=== PATIENT | male | born 1990 | race Two or more races ===

== ENCOUNTER 2018-08-21 14:57 | Inpatient (IN) | payer OTHER ==
--- OUTSIDE RECORDS SUMMARY | 2018-08-21 15:45 | XMS REPORT | Continuity of Care Document ---
:1990 External Reference #:[id number] Author Name Ermias Meléndez MD Address [facility] [place] [address] Care Team Providers Name Role Phone Brandee CamachoRPA-C Care Team Information Inspection Supervisor Unavailable Payers Type Date Identification Numbers Payment Provider Subscriber Policy Number: [id number] [facility] Raul Apodaca PayID: [id number] [address] [place] [address] Advance Directives Description No Information Available Problems Date Description Provider Status Onset: 08/19/2018 Epigastric pain Ermias Meléndez MD Active Family History Date Family Member(s) Problem(s) Comments Mother Heart Disease Social History Type Date Description Comments Sex Unknown Tobacco Use Start: Unknown Patient has never smoked Smoking Status Reviewed: 08/19/18 Patient has never smoked Allergies, Adverse Reactions, Alerts Description No Known Drug Allergies Medications Medication Date Status Form Strength Qnty SIG Indications Ordering Provider Sucralfate 08/19/20 Active Suspension 1GM/10ML 20ml 10mL R10.13 Ermias Swain 18 po q MD Rika ac and hs Amoxicillin Active Capsules 500mg Khavash,Valencia 00 bassam,RPA-C Clarithromycin Active Tablets 500mg Khavash,Valencia 00 bassam,RPA-C Omeprazole Active Capsules DR 40mg Khavash,Valencia 00 bassam,RPA-C Immunizations Description No Information Available Vital Signs Date Vital Result Comment 08/19/2018 11:04am Height 71.5 inches 5'11.50" Weight 168.00 lb BP Systolic 138 mmHg BP Diastolic 72 mmHg Heart Rate 66 /min BMI (Body Mass Index) 23.1 kg/m2 Results Test Date Facility Test Result H/L Range Note CBC W/Auto 08/18/2018 [facility] White Blood <pending> Differential(!) Count Ser Auto CNT RBC Red Blood Count <pending> Hemoglobin Blood <pending> Hematocrit <pending> MCV (Corpuscular Volume) <pending> MCH (Corpuscular Hemoglobin) <pending> MCHC (Corpuscular Hemog Conc) <pending> RDW <pending> Platelet Count Blood Auto CNT <pending> MPV <pending> Lymph% <pending> Brewster% <pending> Neutrophil % <pending> Absolute Lymphocytes <pending> Absolute Monocytes <pending> Absolute Neutrophils <pending> CMP(!) 08/18/2018 [facility] Sodium(!) <pending> Potassium(!) <pending> Chloride Serum/Plasma(!) <pending> Carbon Dioxide Ser/Plasm(!) <pending> BUN - Urea Nitrogen(!) <pending> Calcium Ser/Plasma Mass/Vol(!) <pending> Creatinine Serum Mass/Vol(!) <pending> Glucose Serum(!) <pending> BUN/Creatinine Ratio(!) <pending> Albumin Serum/Plasma(!) <pending> Alkaline Phosphatase(!) <pending> Bilirubin Total Mass/Vol(!) <pending> Ast - Sgot <pending> Alt - SGPT <pending> Protein Total <pending> Amylase & Lipase 08/18/2018 [facility] Amylase(!) <pending> Lipase Ser/Plas (!) <pending> Xray 08/18/2018 [facility] [place] [place] Radiology US Gallbladder <pending> CBC W/Auto 08/13/2018 [facility] White Blood Count Ser <pending> Differential(!) Auto CNT RBC Red Blood Count <pending> Hemoglobin Blood <pending> Hematocrit <pending> MCV (Corpuscular Volume) <pending> MCH (Corpuscular Hemoglobin) <pending> MCHC (Corpuscular Hemog Conc) <pending> RDW <pending> Platelet Count Blood Auto CNT <pending> MPV <pending> Lymph% <pending> Brewster% <pending> Neutrophil % <pending> Absolute Lymphocytes <pending> Absolute Monocytes <pending> Absolute Neutrophils <pending> CMP(!) 08/13/2018 [facility] Sodium(!) <pending> Potassium(!) <pending> Chloride Serum/Plasma(!) <pending> Carbon Dioxide Ser/Plasm(!) <pending> BUN - Urea Nitrogen(!) <pending> Calcium Ser/Plasma Mass/Vol(!) <pending> Creatinine Serum Mass/Vol(!) <pending> Glucose Serum(!) <pending> BUN/Creatinine Ratio(!) <pending> Albumin Serum/Plasma(!) <pending> Alkaline Phosphatase(!) <pending> Bilirubin Total Mass/Vol(!) <pending> Ast - Sgot <pending> Alt - SGPT <pending> Protein Total <pending> Amylase & Lipase 08/13/2018 [facility] Amylase(!) <pending> Lipase Ser/Plas (!) <pending> Procedures Description No Information Available Encounters Description No Information Available Plan of Treatment Future Appointment(s):08/21/2018 10:00 am - Ermias [facility] MD at [facility]08/19/2018 - Ermias Meléndez, MDR10.13 Epigastric painNew Medication:Sucralfate 1 GM/10ML - 10mL po q ac and hsComments :RISKS AND BENEFITS OF THE PROCEDURE WERE DISCUSSED WITH PATIENT. I had a long discussion with the patient. We discussed possible causes of his pain. I do wonder if he could have peptic ulcer disease. He does have H. pylori. This could be his gallbladder however I have low suspicions for this. Iwould like to try him on Carafate and then I am going to arrange an EGD for him the day after Thanksgiving tomorrow.
[2018-08-21] MEDS ORDERED: NS 0.9% 1000 ML* 1,000 ML IV ONE (17:43)
--- NOTE | 2018-08-21 17:49 | ED ---
Abdominal Pain/Male - HPI Summary HPI Summary: A 28 year old male presents to [facility] with a chief complaint of abd pain since , specifically his RUQ. He states that it is his third time in the ED this week. He saw Dr. Meléndez GI, this morning, who referred him back to the ED after a negative endoscopy. He was recently diagnosed with esophagitis and gall stones. He currently rates his abd pain as 8/10. He denies fevers and N/V. He last ate bananas and crackers after the endoscopy. He has a SHx of an appendectomy. He denies drug or EtOH use or smoking. - History of Current Complaint Chief Complaint: EDAbdPain Stated Complaint: STOMACH PAIN Time Seen by Provider: 08/21/18 17:33 Hx Obtained From: Patient Onset/Duration: Sudden Onset, Lasting Days, Still Present Timing: Constant Severity Initially: Severe Severity Currently: Severe Pain Intensity: 8 Pain Scale Used: 0-10 Numeric Location: Discrete At: RUQ Radiates: No Alleviating Factor(s): Nothing Associated Signs And Symptoms: Negative: Fever, Nausea, Vomiting - Allergies/Home Medications Allergies/Adverse Reactions: Allergies Allergy/AdvReac Type Severity Reaction Status Date / Time No Known Allergies Allergy Verified 08/21/18 15:40 Home Medications: Home Medications Amoxicillin 08/22/18 [History] Clarithromycin 08/22/18 [History] Omeprazole 08/22/18 [History] Sucralfate 08/22/18 [History] PMH/Surg Hx/FS Hx/Imm Hx Endocrine/Hematology History: Denies: Hx Diabetes Cardiovascular History: Denies: Hx Hypercholesterolemia, Hx Hypertension GI History: Reports: Other GI Disorders - gallstones Sensory History: Denies: Hx Legally Blind, Hx Deafness Opthamlomology History: Denies: Hx Legally Blind Psychiatric History: Reports: Hx Anxiety - Surgical History Surgery Procedure, Year, and Place: appendectomy - Immunization History Date of Influenza Vaccine: 2017 Infectious Disease History: No Infectious Disease History: Denies: Traveled Outside the [place] in Last 30 Days - Family History Known Family History: Negative: Hypertension, Diabetes, Seizure Disorder, Blood Disorder, Other - HLD - Social History Alcohol Use: None Substance Use Type: Reports: None Hx Tobacco Use: No Smoking Status (MU): Never Smoked Tobacco Review of Systems Negative: Fever Positive: Abdominal Pain - RUQ. Negative: Vomiting, Nausea All Other Systems Reviewed And Are Negative: Yes Physical Exam - Summary Physical Exam Summary: VITAL SIGNS: Reviewed. GENERAL: Patient is a well-developed and nourished male who is lying comfortable in the stretcher. Patient is not in any acute respiratory distress. HEAD AND FACE: Normocephalic and atraumatic. EYES: PERRLA, EOMI x 2, No injected conjunctiva. EARS: Hearing grossly intact. Ear canals and tympanic membranes are WNL. MOUTH: Oropharynx within normal limits. NECK: Supple, trachea is midline, no adenopathy, no JVD. CHEST: Symmetric, no tenderness at palpation LUNGS: Clear to auscultation bilaterally. No wheezing or crackles. CVS: RRR, S1 and S2 present, no murmurs or gallops appreciated. ABDOMEN: RUQ tenderness. No signs of distention. Positive bowel sounds. No rebound no guarding, and no masses palpated. No abdominal bruit or pulsations. EXTREMITIES: FROM in all major joints, no edema, no cyanosis or clubbing. NEURO: Alert and oriented x 3. No acute neurological deficits. Speech is normal. SKIN: Dry and warm Triage Information Reviewed: Yes Vital Signs On Initial Exam: Initial Vitals Temp Pulse Resp BP Pulse Ox 98.9 F 76 16 135/68 99 08/21/18 15:37 08/21/18 15:37 08/21/18 15:37 08/21/18 15:37 08/21/18 15:37 Vital Signs Reviewed: Yes Diagnostics - Vital Signs Vital Signs Temp Pulse Resp BP Pulse Ox 08/21/18 15:37 98.9 F 76 16 135/68 99 - Laboratory Result Diagrams: 08/21/18 18:15 08/21/18 18:15 Lab Statement: Any lab studies that have been ordered have been reviewed, and results considered in the medical decision making process. Re-Evaluation - Re-Evaluation First Eval Re-Evaluation Time: 18:50 Change: Unchanged Comment: Patient is stable for sign out Abdominal Pain Fem Course/Dx - Course Assessment/Plan: A 28 year old male presents to [facility] with a chief complaint of abd pain since 08/14/18, specifically his RUQ. He states that it is his third time in the ED this week. He saw VALERIE Echevarria, this morning, who referred him back to the ED after a negative endoscopy. He was recently diagnosed with esophagitis and gall stones. He currently rates his abd pain as 8/10. He denies fevers and N/V. He last ate bananas and crackers after the endoscopy. He has a SHx of an appendectomy. He denies drug or EtOH use or smoking. Blood work without any significant abnormality. I discussed the case with Dr. Roth from GI and he reports that the patient doesnt have any esophagitis, the endoscopy was negative for any pathology. Therefore he recommended further workup in the emergency department. Since the patient had an ultrasound of the right upper quadrant with some sludge and gallstones he thought that the patient may benefit from a surgical consult. Therefore I discussed case with Dr. Gaspar from surgery and he requested to do an abdominopelvic CT and to call him with the results for possible consult. In the ED course the patient was given IV fluids the patient was given Zofran and morphine for the pain. The patient is awaiting for The pelvic CT and he will be signed out to Dr. Alvarado at shift change. He will check the results of the pelvic CT and contact Dr. Gaspar for further assessment. At this point the patient is hemodynamically stable alert and oriented 3. - Diagnoses Differential Diagnosis/HQI/PQRI: Bowel Obstruction, Constipation, Gall Bladder Disease, Hepatitis Provider Diagnoses: Cholelithiasis, Epigastric abdominal pain - Provider Notifications Discussed Care Of Patient With: Ermias Meléndez Time Discussed With Above Provider: 17:40 Instructed by Provider To: Other - Discussed patient's visit with Dr. Meléndez MEAT GRADER. At 18:00 - Dr. Gaspar said he will consult the patient. Discharge - Sign-Out/Discharge Documenting (check all that apply): Sign-Out Patient Signing out patient TO: Evans Alvarado - Discharge Plan Condition: Fair Disposition: ADMITTED TO [facility] - Attestation Statements Document Initiated by Scribe: Yes Documenting Scribe: Abhinav Mejia Provider For Whom Scribe is Documenting (Include Credential): Peterson Johnson Scribe Attestation: Abhinav Church, scribed for Peterson Johnson on 08/22/18 at 0715. Scribe Documentation Reviewed: Yes Provider Attestation: The documentation as recorded by the scribe, Abhinav Mejia accurately reflects the service I personally performed and the decisions made by me, Peterson Johnson Attestations User Type: Provider with Scribe Provider Attestation: The documentation recorded by the scribe accurately reflects the service I personally performed and the decisions made by me.
[2018-08-21] MEDS ORDERED: Morphine VIAL* 4 MG/ML VIAL (1 ml vial) IV ONE (17:53)
[2018-08-21] MEDS ORDERED: Ondansetron INJ* 2 MG/ML VIAL IV ONE (17:54)
[2018-08-21 18:30] LABS: ABS Basophils 0 10^3/ul (0-0.2); ABS Eosinophils 0.1 10^3/ul (0-0.6); ABS Lymphocytes 1.7 10^3/ul (1.0-4.8); ABS Monocytes 0.5 10^3/ul (0-0.8); ABS Neutrophils 3.7 10^3/ul (1.5-7.7); ABS Nucleated RBC 0 10^3/ul; Eosinophil % 0.9 % (0-6); Hematocrit 46 % (42-52); Hemoglobin 15.7 g/dl (14.0-18.0); Lymphocyte % 28.1 % (25-47); Mean Corpuscular HGB Conc 34 g/dl (31-36); Mean Corpuscular Hemoglobin 30 pg (27-31); Mean Corpuscular Volume 89 fL (80-94); Mean Platelet Volume 6.9 fL (7.4-10.4); Nucleated Red Blood Cells % 0.1; Platelet Count 351 10^3/ul (150-450); Red Blood Count 5.24 10^6/ul (4.00-5.40); Red Cell Distribution Width 12 % (10.5-15); White Blood Count 5.9 10^3/ul (3.5-10.8)
[2018-08-21 18:46] LABS: EGFR Non-African American 86.3 (>60)
[2018-08-21] MEDS ORDERED: Iohexol 300* (CONTRAST) 10 ML SDV IV ONE (19:06)
[2018-08-21 19:29] LABS: Urine Appearance Clear; Urine Blood 1+ (Negative); Urine Color Straw; Urine Ketones Negative (Negative); Urine Protein Negative (Negative); Urine Red Blood Cell Trace(0-2/hpf) (Absent); Urine Specific Gravity 1.003 (1.010-1.030); Urine Urobilinogen Negative (Negative); Urine White Blood Cell Absent (Absent)
[2018-08-21] MEDS ORDERED: oxyCODONE/Acetamin 5/325 MG* TAB PO ONE (20:58)
[2018-08-21] MEDS ORDERED: Famotidine TAB* 20 MG PO ONE (21:24)
[2018-08-21] MEDS ORDERED: Ketorolac INJ* 30 MG/ML 1 ML VIAL IV PUSH ONE (21:24)
--- NOTE | 2018-08-21 21:27 | ED ---
Progress - Progress Note Progress Note: Receiving sign out from Dr. Johnson, pending CT A/P and consult from Dr. Gaspar. CT A/P: Gallbladder fossa SHELLIE which can be seen in subtle underlying gallbladder inflammation. No additional findings to suggest acute cholecystitis or to correlate with patient's symptomatology. ED physician reviewed radiology report. Pt is admitted to Dr. Gaspar with a final dx of cholelithiasis and epigastric abdominal pain. Re-Evaluation - Re-Evaluation First Eval Re-Evaluation Time: 20:27 Change: Unchanged Comment: Pt still has some upper abdominal pain. Last time he ate was 14:00 today. A gallbladder US was performed, that revealed multiple stones, no pericholecystic fluid, and the gallbladder wall .38 cm in thickness. Second Eval Re-Evaluation Time: 21:23 Change: Worse Comment: Pt now has increased pain and wants to be admitted. Course/Dx - Course Course Of Treatment: Patient was comfortable on my initial evaluation. I performed a bedside ultrasound of the gallbladder which showed gallstones but no pericholecystic fluid. The gallbladder wall was 3.8 mm. I discussed the case with the surgeon who will follow him up outpatient. Patient however had recurring pain and wanted to stay. We if him antibiotics in the surgeon agreed to admit him - Diagnoses Provider Diagnoses: Cholelithiasis, Epigastric abdominal pain - Provider Notifications Discussed Care Of Patient With: Kirk Gaspar Time Discussed With Above Provider: 20:39 Instructed by Provider To: Other - Have pt be discharged home, and Dr. Gaspar will see pt in his office in 2-3 days. At 21:[address] Gaspar , who accepts pt for admission. Discharge - Sign-Out/Discharge Documenting (check all that apply): Patient Departure - Admit, Receiving Sign- Out Receiving patient FROM: Peterson Johnson - Discharge Plan Condition: Fair Disposition: ADMITTED TO [facility] - Billing Disposition and Condition Condition: FAIR Disposition: Admitted to [facility] - Attestation Statements Document Initiated by Scribe: Yes Documenting Scribe: Nessa Thomas Provider For Whom Scribe is Documenting (Include Credential): Evans Alvarado MD Scribe Attestation: Nessa Church, scribed for Evans Alvarado MD on 08/22/18 at 0134. Scribe Documentation Reviewed: Yes Provider Attestation: The documentation as recorded by the scribe, Nessa Thomas accurately reflects the service I personally performed and the decisions made by me, Evans Alvarado MD
[2018-08-21] MEDS ORDERED: Piperacillin/Tazobac ADVAN(*) 3.375 GM in NS 0.9% 100 ML* 100 ML IVPB ONE (21:28)
[2018-08-21] MEDS ORDERED: Acetaminophen TAB* 325 MG PO PRN (21:35)
[2018-08-21] MEDS ORDERED: Ondansetron INJ* 2 MG/ML VIAL IV PRN (21:35)
[2018-08-21] MEDS: NS 0.9% 1000 ML* 1,000 ML IV SCH (23:08)
--- NOTE | 2018-08-21 23:23 | PRO ---
CC: [facility] * DATE OF PROCEDURE: 08/21/18 - ROOM #341 REFERRING PHYSICIAN: [facility]. PROCEDURE: EGD. INDICATION: Abdominal pain, epigastric pain. MEDICATIONS GIVEN: 75 mcg IV fentanyl, 7 mg IV Versed. DESCRIPTION OF PROCEDURE: After the EGD procedure including the risks, benefits , and alternatives not limited to perforation, surgery, and/or were explained to Mr. Yip, written consent was then obtained. IV medication was given, and a bite block was placed between the teeth. An Olympus gastroscope was then inserted into the patient's mouth, advanced down the esophagus, into the stomach, and into the distal duodenum. In the esophagus at the GE junction, the Z-line was intact. No erosive esophagitis, stricture, or ring was seen. The scope advanced through the GE junction into the body of the stomach. Retroflex view was unremarkable. Forward view was also unremarkable. A very careful and through evaluation did not reveal any erosions or ulcers, but mild gastritis. Biopsy for H. pylori was obtained. The scope was advanced through a widely patent pylorus into the duodenal bulb and into the distal duodenum, both of which were unremarkable. The scope was then withdrawn from the patient. He tolerated the procedure well and was returned to the recovery room in stable condition. IMPRESSION: 1. Complete upper endoscopy into the duodenum with biopsies. 2. Gastritis, status post biopsy. 3. No ulcers were seen. 4. I have encouraged him to follow with surgeons regarding his gallbladder. [id number]/[facility] #: [id number] [facility]
[2018-08-22] MEDS: Piperacillin/Tazobac ADVAN(*) 3.375 GM in NS 0.9% 100 ML* 100 ML IVPB SCH ×3 (01:26→18:43)
[2018-08-22] MEDS: Ketorolac INJ* 30 MG/ML 1 ML VIAL IV PUSH PRN ×3 (05:23→22:29)
[2018-08-22] MEDS: NS 0.9% 1000 ML* 1,000 ML IV SCH ×2 (07:13→16:41)
[2018-08-22] MEDS: oxyCODONE/Acetamin 5/325 MG* TAB PO PRN ×2 (10:55→23:17)
--- NOTE | 2018-08-22 15:42 | HP ---
CC: [facility]; [facility]; Dr. Ermias Meléndez at GI's office * HISTORY AND PHYSICAL: DATE OF ADMISSION: 08/21/18 CHIEF COMPLAINT: Epigastric and right upper quadrant abdominal pain. 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 He is from [facility] and was seen in the emergency room there and was noted to have gallstones on an ultrasound without evidence of cholecystitis or other inflammatory process. he says laboratory workup was unremarkable. He had several more recurrences when seen in the [facility] and was started on omeprazole and a blood test also that showed H. pylori positive serology and he was treated with 2 weeks of antibiotics, which he is just about complete it. About 10 to 11 days ago, though he developed more severe constant epigastric abdominal pain, which is somewhat more in the right upper quadrant. This was persistent. He was seen in the emergency room 2 times in the last 8 to 9 days. He underwent an ultrasound of his gallbladder, which I reviewed. This showed multiple gallstones as well as sludge, but no gallbladder wall thickening or pericholecystic fluid and no ductal dilation or other acute abnormality. Also noted on all his ER visits was normal white blood cell count, no fever and normal liver transaminases and bilirubin. On the second visit, he was referred to Dr. Ermias Meléndez from Gastroenterology. He underwent an upper endoscopy one day prior to his third ER visit with Dr. Meléndez, which was completely unremarkable. I reviewed these results with Dr. Meléndez personally. Last night, his pain persisted, he represented back to the emergency room. At this time, once again his laboratory workup was unremarkable. He underwent a CT scan of the abdomen and pelvis, which showed an unremarkable gallbladder without any evidence of calcified gallstones or pericholecystic fluid or wall thickening; however, there was some transhepatic attenuation difference in the liver surrounding the gallbladder (SHELLIE) that can be seen with subtle inflammatory process involving the gallbladder. The rest of the CT scan was unremarkable. In light of the fact that he has been in the emergency room 3 times over the last 10 days, despite taking his oral narcotic analgesia, he was admitted to the surgical service for further care. He states that he has had no nausea or vomiting. He has had no jaundice. He has had no fevers, shakes, or chills. He has had no change in his bowel habits or color of his bowel movements. He has had no lower abdominal pain. He does state that the pain radiates around to the back, the mid back at times. He has known history of liver disease including hepatitis and he has no history of IV drug abuse. PAST MEDICAL HISTORY: Unremarkable. PAST SURGICAL HISTORY: Open appendectomy. MEDICATIONS: Include: 1. Omeprazole. 2. Carafate. 3. Clarithromycin. 4. Amoxicillin. ALLERGIES: He has no known drug allergies. FAMILY HISTORY: There is no family history of hepatic disease. 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 He does not smoke or drink. He denies use of the drug abuse. He is single. REVIEW OF SYSTEMS: Otherwise unremarkable and as per above. PHYSICAL EXAMINATION GENERAL: He is a well-developed, slender male, appears to be in no apparent distress. He is awake, alert, and conversive. VITAL SIGNS: Temperature 98.1, pulse 68, blood pressure 133/66. HEENT: His sclerae were anicteric. Trachea was midline. Oral mucosa was slightly dry. LUNGS: Clear to auscultation with normal respiratory rate effort. HEART: Regular rate and rhythm without murmurs, rubs, or gallops. ABDOMEN: Soft, nondistended. He has a well-healed right lower quadrant incision without hernia. There is no umbilical hernias. He has normoactive bowel sounds throughout. He has tenderness in the epigastric and right upper quadrant without mass or peritoneal irritation. PSYCHIATRIC: He is awake, alert, and oriented x3. He has normal judgment and insight. DIAGNOSTIC STUDIES/LAB DATA: Laboratory workup last night included a white blood cell count of 5.9 without shift. Electrolytes, BUN, and creatinine were all within normal limits. Lactic acid 0.8. Total bilirubin is 0.6 with normal transaminases. His C-reactive protein of 11.28. Lipase was normal. IMPRESSION: Cholelithiasis with gallbladder stones and sludge without obvious evidence on ultrasound and CAT scan of acute calculus cholecystitis. His pain now persisted for the past 10 to 12 days, but he has symptoms of typical biliary colic dating back at least [address] scan last night once again shows no gallbladder inflammatory process; however , there are findings consistent with a transhepatic attenuation difference in the gallbladder fossa of the liver, which is not noted on the delayed views. Review of the literature suggests that this phenomenon can be related to subtle inflammatory process of the gallbladder and I suspect that this is so in this situation that, i.e., do not believe that there is a mass or other vascular abnormality in the liver bed in this location. PLAN: 1. I discussed all the findings above with him today. I suspect that his symptoms are due to the large number of gallstones and sludge within the gallbladder and I do feel that he would benefit from and undergo a laparoscopic cholecystectomy for treatment of this symptomatic cholelithiasis with possible acute/chronic cholecystitis as well. 2. I discussed his care with Dr. Ermias Meléndez, and I asked him to review the CAT scan for his opinion regarding the phenomenon noted in the gallbladder fossa to rule out any other abnormality that maybe the cause of his discomfort unrelated to the biliary tract and any other workup that may be needed. 3. He has been admitted and started on IV Zosyn. 4. He will be started on the clear liquids today to see if he tolerates this. 5. Plans of surgery the next 24 to 48 hours pending on GI input and his clinical course. I discussed all of the above with the patient including laparoscopic cholecystectomy. The risks of, but not limited to, bleeding, infection, intraabdominal abscess formation, injury to peritoneal and retroperitoneal structures, common bile duct injury requiring reconstruction, bile leak, possibility of an open procedure were all explained. Placement of drains was discussed. In addition, I discussed the possibility that removing the gallbladder may not improve his symptoms and he is well aware of this. [id number]/[facility] #: [id number] [facility]ITAL[facility]
[2018-08-23] MEDS: NS 0.9% 1000 ML* 1,000 ML IV SCH ×3 (00:42→17:45)
[2018-08-23] MEDS: Piperacillin/Tazobac ADVAN(*) 3.375 GM in NS 0.9% 100 ML* 100 ML IVPB SCH ×3 (02:18→17:45)
[2018-08-23] MEDS: oxyCODONE/Acetamin 5/325 MG* TAB PO PRN ×3 (06:32→23:46)
--- NOTE | 2018-08-23 14:52 | PN ---
Progress Note - Progress Note Date of Service: 08/23/18 SOAP: Subjective: Pt seen and examined. No new complaints, some RUQ pain Objective: Temp Pulse Resp BP Pulse Ox 97.8 F 67 16 124/66 100 08/23/18 11:44 08/23/18 11:44 08/23/18 13:46 08/23/18 11:44 08/23/18 11:44 Intake & Output 08/22/18 08/23/18 08/23/18 22:59 06:59 14:59 Intake Total 440 1345 1300 Output Total 1275 250 400 Balance -835 1095 900 Weight 163 lb 3.2 oz a and o x3, nad lungs clear abdo: soft/ ND, tender at ruq, no murphys, no rebound Assessment: biliary colic vs cholecystitis Plan: pain control OR Friday for lap paige npo at N
[2018-08-23] MEDS: Ketorolac INJ* 30 MG/ML 1 ML VIAL IV PUSH PRN (19:57)
[2018-08-24] MEDS: Piperacillin/Tazobac ADVAN(*) 3.375 GM in NS 0.9% 100 ML* 100 ML IVPB SCH ×4 (01:52→22:23)
[2018-08-24] MEDS: NS 0.9% 1000 ML* 1,000 ML IV SCH ×3 (01:52→20:50)
[2018-08-24] MEDS: Ketorolac INJ* 30 MG/ML 1 ML VIAL IV PUSH PRN (02:47)
[2018-08-24] MEDS ORDERED: oxyCODONE/Acetamin 5/325 MG* TAB PO ONE (13:24)
[2018-08-24] MEDS ORDERED: oxyCODONE/Acetamin 5/325 MG* TAB ONE (13:39)
[2018-08-24] MEDS ORDERED: Propofol* 500 MG/50 ML BTL ONE (15:24)
[2018-08-24] MEDS ORDERED: Lidocaine 2% PF * 5 ML VIAL ONE (15:24)
[2018-08-24] MEDS ORDERED: Rocuronium* 10 MG/ML VIAL ONE ×3 (15:24→18:50)
[2018-08-24] MEDS ORDERED: Succinylcholine* 20 MG/ML 10 ML VIAL ONE (15:24)
[2018-08-24] MEDS ORDERED: Midazolam* 1 MG/ML 2 ML VIAL (2 MG) ONE (15:25)
[2018-08-24] MEDS ORDERED: fentaNYL* 50 MCG/ML 2 ML VIAL (100 MCG VIAL) ONE ×2 (15:25→19:48)
[2018-08-24] MEDS ORDERED: EPHEDrine (Pressors)* 50 MG/ML VIAL ONE (15:57)
[2018-08-24] MEDS ORDERED: Bupivacaine 0.25% EPI 200,000* 30 ML SDV ONE (16:54)
[2018-08-24] MEDS ORDERED: Acetaminophen TAB* 325 MG PO PRN ×2 (17:16→19:57)
[2018-08-24] MEDS ORDERED: Naloxone* 0.4 MG/ML 1 ML VIAL IV PRN (17:16)
[2018-08-24] MEDS ORDERED: DiMENhydriNATE IV* 50 MG/ML VIAL IV PUSH PRN (17:16)
[2018-08-24] MEDS ORDERED: Ketorolac INJ* 30 MG/ML 1 ML VIAL ONE (17:22)
[2018-08-24] MEDS ORDERED: Metoclopramide IV* 5 MG/ML 2 ML VIAL ONE (17:22)
[2018-08-24] MEDS ORDERED: Ondansetron INJ* 2 MG/ML VIAL ONE (17:22)
[2018-08-24] MEDS ORDERED: Dexamethasone IV* 4 MG/ML 1 ML (4 MG) ONE (17:22)
[2018-08-24] MEDS ORDERED: Phenylephrine INJ* 10 MG/ML 1 ML VIAL (10 MG) ONE (17:57)
[2018-08-24] MEDS ORDERED: Iohexol 180 (CONTRAST) 10 ML SDV IV ONE (18:08)
[2018-08-24] MEDS ORDERED: Sugammadex * 200 MG/2 ML VIAL IV PUSH ONE (18:50)
[2018-08-24] MEDS ORDERED: HYDROmorphone INJ1* 1 MG/ML SYRINGE ONE ×4 (19:26→20:15)
[2018-08-24] MEDS ORDERED: Acetaminophen IV 1GM/100ML * 1,000 MG/100 ML VIAL IVPB ONE (19:45)
--- NOTE | 2018-08-24 19:47 | OP ---
Operative Report - Blank - Operative Report Date of Operation: 08/24/18 Note: Brief Operative Note Preop Dx: Acute calculous cholecystitis Postop Dx: same Procedure: Laparoscopy, conversion to open cholecystectomy Anesthesia: GET Surgeon: Hubert Tailor Apprentice: YINA Miramontes Fluids: 2 liters LR EBL: 25 ml Specimen: gallbladder Drains: 1 ANA CRISTINA Findings: dictated
[2018-08-24] MEDS ORDERED: Acetaminophen IV 1GM/100ML * 100 ML ONE (19:48)
[2018-08-24] MEDS: HYDROmorphone INJ1* 1 MG/ML SYRINGE IV PRN ×2 (19:53→20:06)
[2018-08-24] MEDS ORDERED: HYDROmorphone INJ1* 1 MG/ML SYRINGE IV PRN ×2 (19:57)
[2018-08-24] MEDS: oxyCODONE/Acetamin 5/325 MG* TAB PO PRN (21:12)
[2018-08-25] MEDS: Ketorolac INJ* 30 MG/ML 1 ML VIAL IV PUSH PRN ×3 (00:12→22:15)
[2018-08-25] MEDS: oxyCODONE/Acetamin 5/325 MG* TAB PO PRN ×5 (02:24→22:12)
[2018-08-25] MEDS: NS 0.9% 1000 ML* 1,000 ML IV SCH ×2 (04:51→13:19)
[2018-08-25] MEDS: Piperacillin/Tazobac ADVAN(*) 3.375 GM in NS 0.9% 100 ML* 100 ML IVPB SCH ×2 (05:52→14:04)
--- NOTE | 2018-08-25 08:27 | PN ---
Progress Note - Progress Note Date of Service: 08/25/18 SOAP: Subjective: Doing well over night Pain adequately controlled Ambulated in halls, tolerating some po Objective: Temp Pulse Resp BP Pulse Ox 97.9 F 64 18 102/48 99 08/25/18 07:21 08/25/18 07:21 08/25/18 08:13 08/25/18 07:21 08/25/18 07:21 Intake & Output 08/23/18 08/24/18 08/25/18 08/26/18 06:59 06:59 06:59 06:59 Intake Total 3347 4075 3510 Output Total 1525 1125 1130 Balance 1822 2950 2380 Weight 163 lb 3.2 oz Intake: IV Fluids 2126 3175 3030 ABX - ZOSYN 110 215 LR 1000 NS 2017 2960 2030 IVPB 200 110 ABX - ZOSYN 200 110 Oral 1020 790 480 Output: ANA CRISTINA #1 130 Urine 1525 1125 1000 Other: Estimated Void Medium Large Date of Last Bowel 08/22/18 08/23/18 Movement # Bowel Movements 1 Estimated Stool Amount Medium # Voids 1 1 PEX: Comfortable Lungs are clear Cor is RRR Abd is soft and non-distended. Dressing intact. Few bowel sounds ANA CRISTINA with small amount of SG fluid, non-bilious. Ext without edema Assessment: POD#1 s/p open cholecystectomy for acute and chronic calculous cholecystitis- doing well Plan: D/C zosyn after 24 hours ANA CRISTINA drainage Increase activity, diet as tolerated Pul toilet Sub q heparin Analgesia
[2018-08-25 09:02] LABS: INR 1.21 (0.77-1.02)
[2018-08-25] MEDS: Heparin VIAL(*) 5000 UNITS/ML VIAL (FIVE THOUSAND) SUBCUT SCH ×2 (14:04→22:17)
--- NOTE | 2018-08-25 20:33 | OP ---
DATE OF OPERATION: 08/24/18 - ROOM #341 DATE OF : 88 SURGEON: Kirk Gaspar MD. ENGINE MANAGER: YINA Muhammad. ANESTHESIA: General. PRE-OP DIAGNOSIS: Right upper quadrant abdominal pain and cholelithiasis. POST-OP DIAGNOSIS: Chronic and acute calculus cholecystitis. OPERATIVE PROCEDURE: Open cholecystectomy converted from a laparoscopic appendectomy. WOUND CLASSIFICATION: IV. COMPLICATIONS: None. DRAINS: #10 ANA CRISTINA drain in the right upper quadrant. SPECIMENS: Gallbladder with contained gallstones. 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 He has a history of what appears to be typical biliary colic. Ten days ago, he underwent an ultrasound of his gallbladder, which showed multiple gallstones with sludge, but no gallbladder wall thickening and his laboratory workup was unremarkable. He has been seen in the emergency room 3 times in the last 10 days and most recently a CT scan that showed no significant abnormality concerning the gallbladder with some hyperattenuation in the liver surrounding the gallbladder itself, which could be consistent with chronic cholecystitis. The patient was admitted through the emergency room and started on IV antibiotics. He is now being taken to the operating room for a cholecystectomy. He did undergo an upper endoscopy 1 day prior to admission by the GI service and this was unremarkable. The procedure was discussed with the patient and the risks of, but not limited to, of bleeding, infection, intraabdominal abscess formation, injury to peritoneal and retroperitoneal structures, common bile duct injury requiring further reconstruction, possibility of an open procedure, abscess formation, the risk of general anesthesia and deep vein thrombosis were all discussed. DESCRIPTION OF PROCEDURE: Written informed consent was obtained and the abdomen was marked with indelible ink. Preoperative antibiotics had been administered. The patient was taken to the operating room and placed in a supine position. Sequential compression devices and a warming blanket were applied. General anesthesia was administered. The abdomen was prepped and draped in the usual sterile fashion. Time-out verification was completed. A small transverse incision was made just above the umbilicus in the midline. The peritoneal cavity was entered under direct vision. A 12-mm blunt port was inserted and the abdomen was insufflated to 15 mmHg. Under direct vision, an 11-mm epigastric port was placed and two 5 mm ports were placed in the right side of the abdominal wall. Careful evaluation revealed a normal liver. The gallbladder was distended and thick walled and had obvious chronic and acute inflammatory change and was quite firm and very difficult to grasp. We then used an 18-gauge spinal needle to aspirate approximately 40 cc of thinner greenish yellow bile and this allowed us to grasp the gallbladder and elevate it up over the liver bed. At this point, it was evident that there was a significant thickened inflammatory rind around the gallbladder and with some tedious dissection through this edematous, firm and indurated tissue, I was able to identify the infundibulum of the gallbladder by mobilizing some of the peritoneum along the lateral aspect of the gallbladder. It was at this point there was a tubular structure that came up from the gallbladder infundibular area and it was quite significant in caliber. It extended all the way up to the top of the gallbladder. I was not certain that this initially may have been the cystic duct, the cystic artery, or even the cystic vein but it did not appear to be pulsatile. Also noted was a rather large inflamed lymph node, which I dissected off the medial portion of the inferior part of the gallbladder and tried to improve visualization. After some tedious dissection and following the gallbladder down toward the infundibular area, it was evident that it was very thin walled and that there was multiple gallstones that appeared to be eroding through the wall of the gallbladder. I milked several of these out along with some sludge, but I was not able to identify the cystic duct due to the dense indurated inflammation. Next, after attempting to identify the structure entering the gallbladder, it appeared that this seemed to be more vascular than a duct, but with this caliber I was hesitant to initially clip or divide this with the extent of the dissection and identification. Thus after attempting to identify the anatomy and due to the dense inflammation , I felt it unsafe to proceed further with a laparoscopic approach and a decision was made to proceed with an open cholecystectomy. A right subcostal incision was made carried down through the rectus muscle. The peritoneal cavity was entered under direct vision without difficulty and exposure was obtained. The gallbladder was grasped at its top with a Fanny and we proceeded to take the gallbladder from the top down. I was able to identify the tubular structure that extended up the entire length of the gallbladder and under control. As it entered the gallbladder, I divided it. I made a small cut in it and it appeared to be the cystic artery and thus we were able to ligate this somewhat more proximally. With care, the gallbladder was removed from the posterior liver bed. The entire bed of the liver appeared to be unremarkable. Down to the infundibulum of the area, the gallstones had eroded through the gallbladder down into the cystic duct and really it was almost very thin in gallbladder tissue and the surrounding induration. I was able to, what I feel was, identify probably the proximal cystic duct and we decided just to divide the gallbladder at this point. The gallbladder was packed with gallstones and there were several gallstones that were spilled, but I was able to irrigate and retrieve all of these stones. Upon evaluating what I felt was a cystic duct remnant, there was no evidence of bile, back flow or leakage and I did not feel at this point that a cholangiogram was going to be effective. I did not attempt to ligate the cystic duct. At this point, the right upper quadrant was thoroughly irrigated and hemostasis was assured. A #10 ANA CRISTINA drain was placed in the right upper quadrant, brought out through the stab wound in the right lateral abdominal wall and sutured to the skin with 3-0 Prolene suture. The posterior fascia was closed with running #1 Vicryl suture. The anterior fascia was closed with an interrupted #1 Vicryl suture. The skin was approximated with stapling device. The initial blunt port site above the umbilicus was also closed at the fascial level with several 0 Vicryl sutures and the skin was approximated with a stapling device. Dry sterile dressings were applied. The patient tolerated the procedure well and was taken to the recovery room in stable condition. [id number]/[facility] #: [id number] [place]
[2018-08-26] MEDS: oxyCODONE/Acetamin 5/325 MG* TAB PO PRN ×5 (02:37→21:01)
[2018-08-26] MEDS: Heparin VIAL(*) 5000 UNITS/ML VIAL (FIVE THOUSAND) SUBCUT SCH ×3 (05:51→21:02)
--- NOTE | 2018-08-26 14:03 | PN ---
Progress Note - Progress Note Date of Service: 08/26/18 SOAP: Subjective: Continues to feels better Tolerating some po Ambulating in halls He does not feel he is ready to go home Objective: Temp Pulse Resp BP Pulse Ox 98.9 F 71 18 101/45 98 08/26/18 11:13 08/26/18 11:13 08/26/18 13:50 08/26/18 11:13 08/26/18 11:13 Intake & Output 08/24/18 08/25/18 08/26/18 08/27/18 06:59 06:59 06:59 06:59 Intake Total 4075 3510 1800 Output Total 1125 1130 37 15 Balance 2950 2380 1763 -15 Weight 163 lb 3.2 oz Intake: IV Fluids 3175 3030 980 ABX - ZOSYN 215 LR 1000 NS 2960 2030 980 IVPB 110 ABX - ZOSYN 110 Oral 790 480 820 Output: ANA CRISTINA #1 130 37 15 Urine 1125 1000 Other: Estimated Void Large Large Medium Date of Last Bowel 08/22/18 08/23/18 Movement # Voids 1 1 1 PEX: COmfortable Lungs are clear Abd is soft and non-distended. Bowel sounds are present. Incision is clean and dry. ANA CRISTINA in place with SG drainage in bulb, not bilious. Dressing changed Ext without edema Assessment: POD# 2 s/p open choly for acute and chronic cholecystitis--ANA CRISTINA in place Off antibiotics Patient is ready for d/c but he does not feel that he can go home today Plan: ANA CRISTINA teaching-he will be discharged with drain in place Sub q heparin Increase activity Oral analgesia, wean off IV narcotics
[2018-08-27] MEDS: oxyCODONE/Acetamin 5/325 MG* TAB PO PRN ×3 (05:47→17:00)
[2018-08-27] MEDS: Heparin VIAL(*) 5000 UNITS/ML VIAL (FIVE THOUSAND) SUBCUT SCH ×2 (05:49→13:00)
--- NOTE | 2018-08-27 08:53 | PN ---
Progress Note - Progress Note Date of Service: 08/27/18 SOAP: Subjective: Doing well Tolerating po Ambulating in halls Pain is now controlled Objective: Temp Pulse Resp BP Pulse Ox 98.5 F 55 18 121/55 98 08/27/18 07:38 08/27/18 07:38 08/27/18 08:27 08/27/18 07:38 08/27/18 08:00 Intake & Output 08/25/18 08/26/18 08/27/18 08/28/18 06:59 06:59 06:59 06:59 Intake Total 3510 1800 520 Output Total 1130 37 35 Balance 2380 1763 485 Intake: IV Fluids 3030 980 LR 1000 NS 2030 980 Oral 480 820 520 Output: ANA CRISTINA #1 130 37 35 Urine 1000 0 Other: Estimated Void Large Medium Date of Last Bowel 08/23/18 Movement # Voids 1 3 PEX: Comfortable Lungs are clear Abd is soft, non-distended. Incision is clean and dry--ANA CRISTINA with SG drainage, non- bilious Ext without edema Assessment: POD#3 s/p open cholecystectomy for acute/chronic calculous cholecystitis- Plan: D/C home today-he says he is ready for D/C today-- Instructions given Rx for pain ANA CRISTINA drain will stay in-- Follow up in office next week
--- NOTE | 2018-08-27 15:29 | DS ---
DATE OF ADMISSION: 08/23/2018. DATE OF DISCHARGE: 08/27/2018. PRINCIPAL DIAGNOSIS: Acute and chronic cholecystitis. PROCEDURE PERFORMED: Open cholecystectomy. SURGEON: Dr. Kirk Gaspar. DISPOSITION: To home. CONDITION ON DISCHARGE: Good. DISCHARGE MEDICATIONS: Percocet for pain as needed. He was strongly encouraged to take nonsteroidal pain medication and plain Tylenol and the narcotic and opioid only for severe breakthrough pain. He was discharged home with a Eduard-Desouza drain in and was instructed of its use, emptying and recording the output to bring to the office. Full written instructions were given on wound care and activity restrictions. BRIEF HISTORY: Mr. 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 Over the past 10 to 12 days , the patient had become constant and more severe. He was seen in the emergency room twice in the last several weeks. Work-up there included a normal white blood cell count, liver transaminase, and bilirubin, and an ultrasound which confirmed multiple gallstones and sludge, but no evidence of gallbladder wall thickening, pericholecystic fluid or other acute abnormality. There was no ductal dilation. On two occasions he was discharged home from the emergency room and after being seen a second time he had follow-up with Gastroenterology and underwent an upper endoscopy with Dr. Meléndez prior to the day of presentation per above which was unremarkable for any esophageal or gastric pathology. He then presented to the emergency room with worsening discomfort. He was once again noted to have a normal white blood cell count with no fever, but tenderness in the epigastric and right upper quadrant without peritoneal irritation. A CT scan of the abdomen and pelvis was obtained which showed no gallstones and mild gallbladder wall thickening, but no ductal dilation or pericholecystic fluid. There was also some hyperattenuation in the vasculature of the liver surrounding the gallbladder which was felt secondary to chronic and subtle acute cholecystitis/inflammation. HOSPITAL COURSE: The patient was seen in the emergency room and initially the plans were for discharge with surgical follow-up for planned cholecystectomy. At this point his pain was worsening and since he had been in the emergency room three times in the last ten days, he was admitted to the Surgical service and started on IV antibiotics for a presumed acute calculus cholecystitis. He was taken to the operating room where he underwent an attempted laparoscopic cholecystectomy. He was subsequently converted to an open cholecystectomy for severe acute and chronic inflammatory response and had a Eduard-Desouza placed for postoperative management. Please see the separate dictated operative note for the details. Postoperatively, he was maintained on 24 hours of IV antibiotics. He remained afebrile. His Eduard Desouza drain remained nonbilious and small amounts of serous sanguineous fluid. On the day of discharge, he was tolerating a low fat diet. He was afebrile and ambulating the halls without difficulty. He was discharged home with the above instructions. [id number]/[facility] #: [id number] [facility]
[2018-08-27 16:22] VITALS: BP 117/60
== END 2018-08-27 17:30 | disposition home or self-care (01) | DRG 416 ==
LOC: ED 14:57 → SSU 21:30 → OBSVTOIN 08-23 15:00
PROVIDERS: ADMIT Surgery; ATTEND Surgery
PROC: 0DB78ZX Excision of Stomach, Pylorus, Via Natural or Artificial Opening Endoscopic, Diagnostic (ICD-10-PCS; 2018-08-21)
PROC: 0WJP4ZZ Inspection of Gastrointestinal Tract, Percutaneous Endoscopic Approach (ICD-10-PCS; 2018-08-24)
PROC: 0FT40ZZ Resection of Gallbladder, Open Approach (ICD-10-PCS; principal; 2018-08-24 16:00)
DX: K80.12 Calculus of gallbladder with acute and chronic cholecystitis without obstruction (principal); K29.70 Gastritis, unspecified, without bleeding; F41.9 Anxiety disorder, unspecified; Z53.31 Laparoscopic surgical procedure converted to open procedure
CPT/HCPCS: 36415; 74177; 80053; 81003; 81015; 83605; 83690; 83735; 85025; 85610; 85730; 86140; 86703; 88304; 99284; A9270-GY; G0378; J0330; J1100; J1170; J1644; J1885; J2250; J2270; J2405; J2543; J2704; J2765; J3010; Q9967